=== PATIENT | male | born 1950 | race Caucasian/White ===

== ENCOUNTER 2020-05-26 00:09 | Inpatient (IN) | payer MEDICARE, SELFPAY ==
[2020-05-26] VITALS (10 sets, daily range): BP systolic 100–129; BP diastolic 67–92; PULSE 72–98; RESP 12–18; TEMP 36.8–37.4; O2SAT 90–96; BMI 28.6
[2020-05-26 00:49] LABS: Basophils % 0.3 %; Eosinophils % 0.3 %; Hematocrit 54.6 % (42.0-52.0); Hemoglobin 17.9 g/dL (11.7-16.6); Lymphocytes # 1.5 10^3/uL (0.8-4.8); Mean Corpuscular HGB Conc 32.8 g/dL (30.0-36.0); Mean Corpuscular Hemoglobin 30.2 pg (28.0-34.0); Mean Corpuscular Volume 92.1 fL (80-94); Monocytes # 1.4 10^3/uL (0.2-0.9); Monocytes % 9.2 %; Neutrophils # 12.2 10^3/uL (1.8-7.7); Neutrophils % 79.9 %; Nucleated Red Blood Cells % 0 %; Platelet Count 207 10^3/cmm (130-400); Red Blood Count 5.93 10^6/uL (4.1-5.3); Red Cell Distribution Width 15.5 % (12.1-15.1); White Blood Count 15.3 10^3/uL (4.0-10.0)
[2020-05-26 00:55] LABS: INR 1.16 (0.8-1.2); Partial Thromboplastin Time 36.2 SECONDS (23.9-36.7)
[2020-05-26 00:57] LABS: Alanine Aminotransferase 46 U/L (0-41); Albumin Level 3.9 g/dL (3.5-5.2); Alkaline Phosphatase 56 IU/L (40-130); Anion Gap 17.1 (5-19); Aspartate Amino Transferase 33 U/L (0-40); Blood Urea Nitrogen 12 mg/dL (8-23); Calcium 9.2 mg/dL (8.5-10.5); Carbon Dioxide 25 mmol/L (22-29); Chloride 97 mmol/L (98-107); Globulin 2.9 g/dL (1.3-4.6); Glucose 121 mg/dL (65-115); Osmolality Calculated 277 mOsm/kg (285-295); Potassium 4.1 mmol/L (3.5-5.1); Sodium 135 mmol/L (136-145); Total Bilirubin 0.9 mg/dL (0.15-1.2); Total Protein 6.8 g/dL (6.6-8.7)
--- NOTE | 2020-05-26 01:16 | P.CONIM_ITS ---
Providers/Reason For Consult Consulting Physican/Specialty*: Hospitalist service Reason for Consult*: Perioperative management Primary Care Provider: Felicity Carlson DO History of Present Illness History of Present Illness Oren Meyer is a 69 year old male who carries history of atrial fibrillation, anticoagulated with Eliquis, saphenous vein ablation in the past by Dr. Liu, hypothyroidism, hypertension, dyslipidemia, active smoker but transferred from [facility] for right lower quadrant pain. Patient is stating that he was in his usual state of health until Thursday morning when he started dispensing right lower quadrant pain, his pain was radiating towards his groin area, he did not notice any fever but endorsing chills, nausea and one episode of vomiting, after episode of vomiting he was able to drink mushroom soup without any difficulty. His last Eliquis dose was yesterday morning. He has not noticed any bleeding, he denies any previous surgical history which require anesthetic agents or intubation. He smoking about 1 pack a day. 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 At the time my evaluation patient was in left lateral position, resting, no active distress Afebrile, heart rate ranging between 90-1 04, Tenderness on deep palpation around right lower quadrant area, CT abdomen revealed acute appendicitis without abscess formation or perforation He has been given 1 dose of Zosyn Diagnostic data other facility revealed magnesium 2.1, digoxin level 0.91, u nremarkable urinalysis other than 2+ glucose CT abdomen revealed acute appendicitis, cholelithiasis and hepatic steatosis INR 1.2 PT 14 point He was given 1 L normal saline Diagnostic in our ER revealed leukocytosis, hemoconcentration Heart rate ranging between 90-1 04 atrial fibrillation, No active signs of CHF Review of Systems Const: Reports: chills and body aches; Denies: fever(s), change in weight, fatigue or diaphoresis Eyes: Denies: change in vision ENMT: Denies: throat pain Card: Denies: chest pain Resp: Denies: dyspnea GI: Reports: abdominal pain, nausea and vomiting; Denies: diarrhea or constipation : Denies: flank pain Musc: Denies: neck pain Skin/Breast: Reports: rash, new lesions (Left hand dorsal area) and lesions (Petechia bruises all over body) Neuro: Denies: headache(s) Psych: Denies: anxiety Endo: Denies: polyuria Maged/Lymph: Denies: easy bruising All/Imm: Denies: urticaria Meds/Allergies Home Medications and Allergies Allergies Allergy/AdvReac Type Severity Reaction Status Date / Time codeine Allergy Unknown Verified 05/26/20 00:15 PFSH Acute PFSH: Medical History (Updated 05/26/20 @ 01:22 by Tisha Braswell MD) Atrial fibrillation Chronic anticoagulation Chronic venous stasis Dyslipidemia Surgical History (Updated 05/26/20 @ 01:46 by Tisha Braswell MD) Status post endovenous radiofrequency ablation (RFA) of saphenous vein Family History (Updated 05/26/20 @ 01:47 by Tisha Braswell MD) Denies family history of Lung disease Social History (Updated 05/26/20 @ 01:47 by Tisha Braswell MD) Smoking and tobacco status: heavy tobacco smoker cigarettes [ Other cigarette details: 2 packs/day -for last 50 years ] Alcohol intake: current Alcohol intake frequency: few times a month Alcohol type: beer Substance/Drug Use: never Household members: spouse Housing: House Vitals/I&O/Wt Last Vital Signs Temp 99.3 F 05/26/20 00:16 Pulse 81 05/26/20 00:16 Resp 18 05/26/20 00:16 BP 125/92 05/26/20 00:16 Pulse Ox 92 05/26/20 00:16 Weight last 48 hrs Weight 98.43 kg Physical Exam Narrative: EXAM NARRATIVE: Head to toe examination Well-built male Resting comfortably in his bed Variable S1-S2 heart rate ranging between 90-1 04 No active signs of CHF Lower extremity venous stasis and varicose veins positive bilaterally Lungs are clear to auscultation Neurologically nonfocal exam Abdomen soft, no active signs of diffuse peritonitis, local tenderness to deep palpation right lower quadrant area, Lower extremity no signs of edema gangrene or ulcer Appropriate mood and Multiple petechia bruises all over his body Healing laceration of left hand A&P Assessment and plan (1) Acute appendicitis with localized peritonitis without abscess: Acute appendicitis without abscess or perforation Sepsis criteria met with tachycardia and leukocytosis Patient has received Zosyn in the ER Medical consult for perioperative management: His last Eliquis dose was on Thursday morning, I would hold digoxin, Eliquis, lisinopril and continue AV randall blocking agent metoprolol and Cardizem to prevent perioperative decompensation of A. fib, patient is fairly active for his age, considering urgent nature of the surgery no further cardiac work-up is needed. Considering use of Eliquis I would strongly recommend discontinuing aspirin. Digoxin level 0.91 Status: Acute Additional A&P Information Hypothyroidism: Continue levothyroxine after surgery Type 2 diabetes: Hold insulin, if he becomes hyperglycemic would manage hyperglycemia with fluids DVT prophylaxis on hold perioperatively Mild dehydration with hemoconcentration: Anticipating improvement with fluid resuscitation N.p.o. Full code Consult Attestations Medical Necessity Statement: As per surgical Time Spent in Patient Care: (>than 50% of time spent in counselling and/or direct pt care on unit) . 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
[2020-05-26] MEDS: piperacillin-tazobactam 3.375 GM in sodium chloride 0.9% (plus) 50 ML IV ×3 (01:20→16:59)
[2020-05-26] MEDS: sodium chloride 0.9% 1,000 ML 125 ML IV ×3 (03:49→19:46)
[2020-05-26 05:29] LABS: Glucose Point of Care 103 mg/dL (70-110)
[2020-05-26 07:22] LABS: Basophils % 0.4 %; Eosinophils # 0.1 10^3/uL (0.0-0.8); Eosinophils % 0.8 %; Hematocrit 53.4 % (42.0-52.0); Hemoglobin 17.4 g/dL (11.7-16.6); Lymphocytes # 1.6 10^3/uL (0.8-4.8); Lymphocytes % 14.8 %; Mean Corpuscular HGB Conc 32.6 g/dL (30.0-36.0); Mean Corpuscular Hemoglobin 30.2 pg (28.0-34.0); Mean Corpuscular Volume 92.5 fL (80-94); Mean Platelet Volume 10.2 fL (7.4-10.4); Monocytes # 1.1 10^3/uL (0.2-0.9); Monocytes % 10.1 %; Neutrophils # 7.8 10^3/uL (1.8-7.7); Neutrophils % 73.6 %; Nucleated Red Blood Cells % 0 %; Platelet Count 169 10^3/cmm (130-400); Red Blood Count 5.77 10^6/uL (4.1-5.3); Red Cell Distribution Width 15.8 % (12.1-15.1); White Blood Count 10.6 10^3/uL (4.0-10.0)
--- NOTE | 2020-05-26 08:01 | PC.NURSE ---
Patient speaking to his on the phone at this time.
--- NOTE | 2020-05-26 08:14 | PM.HP ---
Providers/Chief Complaint Admitting Physician: Anish Urias MD Primary Care Provider: Felicity Carlson DO Chief Complaint: APPLY History of Present Illness Oren Meyer is a 69 year old male Review of Systems General: Reports: 10 or more systems reviewed and unremarkable except in HPI and below Medications/Allergies Home Medications Medication Instructions Recorded Confirmed Last Taken Type apixaban [Eliquis] 5 mg PO BID 05/26/20 05/26/20 05/25/20 08:00 History Allergies Allergy/AdvReac Type Severity Reaction Status Date / Time codeine Allergy Intermediate ADR/ALGY-Pa Verified 05/26/20 03:27 lpitations PFSH Acute PFSH: Medical History Atrial fibrillation Chronic anticoagulation Chronic venous stasis Dyslipidemia Hypothyroidism Surgical History Status post endovenous radiofrequency ablation (RFA) of saphenous vein Family History Denies family history of Lung disease Social History Smoking and tobacco status: heavy tobacco smoker cigarettes [ Other cigarette details: 2 packs/day -for last 50 years ] Alcohol intake: current Alcohol intake frequency: few times a month Alcohol type: beer Substance/Drug Use: never Household members: spouse Housing: House Vitals/I&O/Wt Last Vital Signs Temp 99.0 F 05/26/20 03:25 Pulse 84 05/26/20 08:09 Resp 18 05/26/20 08:09 BP 100/67 05/26/20 03:25 Pulse Ox 90 05/26/20 08:09 05/25/20 05/26/20 05/26/20 22:59 06:59 14:59 Intake Total 120 / 120 Output Total 600 / 600 Balance -480 / -480 Weight last 48 hrs Weight 217 lb Physical Exam Narrative: EXAM NARRATIVE: HEENT: Normocephalic Eye: Sclera /conjunctiva normal Respiratory and chest: Bilateral clear breath sounds on auscultation Cardiovascular: Normal S1 and S2 heart sounds Abdomen: Soft to palpation, tender right lower quadrant Neurological: Oriented to place person and time Skin: Intact, no lesions appreciated on gross exam Data : 05/26/20 06:52 05/26/20 00:21 A&P Assessment and plan (1) Acute appendicitis with localized peritonitis without abscess: 69-year-old gentleman with right lower quadrant pain with CT scan confirming acute appendicitis. Patient took his last dose of Eliquis yesterday morning. At this point patient is hemodynamically stable, no evidence of peritonitis. We will therefore treat him with IV Zosyn every 8 hours and plan for surgery tomorrow morning when he would have been off Eliquis for 48 hours. 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
[2020-05-26] MEDS: metoprolol tartrate 25 mg Tablet 12.5 MG PO ×2 (08:39→16:59)
[2020-05-26] MEDS: dilTIAZem ER (24HR) 240 mg Capsule PO (08:39)
[2020-05-26 08:49] LABS: Albumin Level 3.7 g/dL (3.5-5.2); Alkaline Phosphatase 57 IU/L (40-130); Anion Gap 17.6 (5-19); Aspartate Amino Transferase 27 U/L (0-40); Blood Urea Nitrogen 11 mg/dL (8-23); Calcium 8.9 mg/dL (8.5-10.5); Carbon Dioxide 24 mmol/L (22-29); Chloride 99 mmol/L (98-107); Globulin 3.4 g/dL (1.3-4.6); Glucose 103 mg/dL (65-115); Osmolality Calculated 280 mOsm/kg (285-295); Potassium 3.6 mmol/L (3.5-5.1); Sodium 137 mmol/L (136-145); Total Protein 7.1 g/dL (6.6-8.7)
[2020-05-26 09:00] LABS: Alanine Aminotransferase 39 U/L (0-41)
--- NOTE | 2020-05-26 11:57 | PM.PN ---
Subjective Subjective: Interval history: This morning patient states that he is feeling a bit better, he will have a bowel movement, pass gas, no fevers, no chills, no nausea, no vomiting Vitals/I&O/Wt Last Vital Signs Temp 98.3 F 05/26/20 08:00 Pulse 84 05/26/20 08:09 Resp 18 05/26/20 08:09 BP 124/73 05/26/20 08:00 Pulse Ox 90 05/26/20 08:09 05/25/20 05/26/20 05/26/20 22:59 06:59 14:59 Intake Total 120 / 120 Output Total 600 / 600 Balance -480 / -480 Weight last 48 hrs Weight 98.43 kg Physical Exam Const: COMMON NORMALS: no acute distress and patient oriented x3 HENMT: COMMON NORMALS: normocephalic HEAD & SCALP: normocephalic Neck/C-Spine: COMMON NORMALS: no JVD Resp: COMMON NORMALS: normal respiratory effort, No retractions, No use of accessory muscles and clear to auscultation bilaterally AUSCULTATION: clear to auscultation bilaterally Cardio: COMMON NORMALS: no JVD, regular rate, regular rhythm, S1 normal heart sound present and S2 normal heart sound present RATE: regular rate RHYTHM: regular rhythm HEART SOUNDS: S1 normal heart sound present and S2 normal heart sound present GI: COMMON NORMALS: Soft to palpation, non-tender, No hepatosplenomegaly present, no masses and no bruits INSPECTION: Yes normal to inspection AUSCULTATION: Yes Hypoactive bowel sounds present PALPATION: Yes Soft to palpation, No Firmness to palpation present (GI), Yes Tenderness to palpation present (GI) (Tenderness) Details: RLQ, No Guarding due to palpation present (GI), No Rigid due to palpation and Yes No hepatosplenomegaly present PERCUSSION: normal to percussion Extremity: COMMON NORMALS: capillary refill normal, no clubbing, cyanosis or edema, no calf tenderness and no pedal edema Neuro: COMMON NORMALS: patient oriented x3 Psych: COMMON NORMALS: mental status grossly normal Data : 05/26/20 06:52 05/26/20 06:52 A&P Assessment and plan (1) Acute appendicitis with localized peritonitis without abscess: Acute appendicitis without abscess or perforation Sepsis criteria met with tachycardia and leukocytosis Patient has received Zosyn in the ER Medical consult for perioperative management: His last Eliquis dose was on Thursday morning, I would hold digoxin, Eliquis, lisinopril and continue AV randall blocking agent metoprolol and Cardizem to prevent perioperative decompensation of A. fib, patient is fairly active for his age, considering urgent nature of the surgery no further cardiac work-up is needed. Considering use of Eliquis I would strongly recommend discontinuing aspirin. Digoxin level 0.91 Plan is for surgery tomorrow morning in the meantime, monitor for fevers, serial abdominal exams Status: Acute Additional A&P Information Hypothyroidism: Continue levothyroxine after surgery Type 2 diabetes: Hold insulin, if he becomes hyperglycemic would manage hyperglycemia with fluids DVT prophylaxis on hold perioperatively Mild dehydration with hemoconcentration: Anticipating improvement with fluid resuscitation N.p.o. 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
[2020-05-26 17:15] LABS: Glucose Point of Care 91 mg/dL (70-110)
[2020-05-26 21:25] LABS: Glucose Point of Care 103 mg/dL (70-110)
[2020-05-27] VITALS (15 sets, daily range): BP systolic 108–161; BP diastolic 72–88; PULSE 65–101; RESP 16–25; TEMP 36.2–36.7; O2SAT 92–99
[2020-05-27] MEDS: piperacillin-tazobactam 3.375 GM in sodium chloride 0.9% (plus) 50 ML IV ×2 (00:50→10:17)
[2020-05-27 05:41] LABS: Basophils # 0.1 10^3/uL (0.0-0.1); Basophils % 0.7 %; Eosinophils # 0.1 10^3/uL (0.0-0.8); Eosinophils % 2.1 %; Hematocrit 52.9 % (42.0-52.0); Hemoglobin 17.3 g/dL (11.7-16.6); Lymphocytes # 1.2 10^3/uL (0.8-4.8); Lymphocytes % 18.1 %; Mean Corpuscular HGB Conc 32.7 g/dL (30.0-36.0); Mean Corpuscular Hemoglobin 30.9 pg (28.0-34.0); Mean Corpuscular Volume 94.5 fL (80-94); Mean Platelet Volume 10.1 fL (7.4-10.4); Monocytes # 0.9 10^3/uL (0.2-0.9); Monocytes % 12.8 %; Neutrophils # 4.5 10^3/uL (1.8-7.7); Neutrophils % 65.7 %; Nucleated Red Blood Cells % 0 %; Platelet Count 162 10^3/cmm (130-400); Red Cell Distribution Width 15.9 % (12.1-15.1); White Blood Count 6.8 10^3/uL (4.0-10.0)
[2020-05-27 05:58] LABS: Alanine Aminotransferase 39 U/L (0-41); Albumin Level 3.8 g/dL (3.5-5.2); Alkaline Phosphatase 50 IU/L (40-130); Anion Gap 19.3 (5-19); Blood Urea Nitrogen 10 mg/dL (8-23); Calcium 8.7 mg/dL (8.5-10.5); Carbon Dioxide 22 mmol/L (22-29); Chloride 99 mmol/L (98-107); Globulin 2.9 g/dL (1.3-4.6); Glucose 86 mg/dL (65-115); Magnesium 2.3 mg/dL (1.7-2.3); Osmolality Calculated 277 mOsm/kg (285-295); Phosphorus 2.4 mg/dL (2.5-4.5); Potassium 4.3 mmol/L (3.5-5.1); Sodium 136 mmol/L (136-145); Total Protein 6.7 g/dL (6.6-8.7)
[2020-05-27 06:13] LABS: Aspartate Amino Transferase 36 U/L (0-40)
[2020-05-27 06:29] LABS: INR 1.01 (0.8-1.2)
[2020-05-27 06:34] LABS: Procalcitonin 0.13 ng/mL (0-0.5)
[2020-05-27 07:09] LABS: Glucose Point of Care 99 mg/dL (70-110)
[2020-05-27] MEDS: sodium chloride 0.9% 1,000 ML 30 ML IV (07:35)
--- NOTE | 2020-05-27 07:48 | P.ANESASSM_ITS ---
Pre-Anesthetic Assessment Pre-Anesthetic Assessment: Height/Weight: Height 1.85 m Weight 98.43 kg Temp Pulse Resp BP Pulse Ox 97.8 F 83 18 126/79 93 05/27/20 07:29 05/27/20 07:29 05/27/20 07:29 05/27/20 07:29 05/27/20 07:29 Preop Diagnosis: acute appendicitis Proposed Procedure: Operation Date: 05/27/20 08:20 Proposed Procedures p Laparoscopic Appendectomy(Not Applicable) - Anish Urias MD Familial anesthetic complications: none Was Beta Christo taken within 24 hours: Yes Last intake: Intake Last Liquid Date 05/25/20 Last Liquid Time 23:00 Last Solid Date 05/25/20 Last Solid Time 15:00 Social: Social History: Alcohol and Tobacco Packs per day: 1 Pack years: 50+ Exam: Pre-Anes Outpt Exam: alert, oriented x 3, clear to auscultation bilaterally and regular rate & rhythm Airway: Submandibular: WNL Cervical ROM: WNL MP: 1 Dentition: False Pulmonary: Pulmonary: COPD and Sleep apnea CV/HEM: CV/HEM: Afib and PVD : : None reported Hepatic: Hepatic: None reported GI: GI: None reported Metabolic: Metabolic: DM Musc/skel: Musc/skel: Lower Back Pain and OA/DJD Neuropsych: Neuropsych: Seizure ( when i was 16 yo when i had the last one ) Anesthetic Plan: ASA status: 3 Anesthesia: General Risk of > 500 ml blood loss (7ml/kg in children): No Meds/Allergies Current Medications: Current Medications Generic Name Dose Route Start Last Admin Trade Name Sudarshanq PRN Reason Stop Dose Admin Diltiazem HCl 240 mg 05/26/20 09:00 05/26/20 08:39 Cardizem Cd (24h r) PO 240 mg DAILY MARCEL Administration Sodium Chloride 1,000 mls @ 125 m ls/hr 05/26/20 03:10 05/27/20 00:45 Sodium Chloride 0.9% IV Not Given .Q8H MARCEL Piperacillin Sod/T azobactam 50 mls @ 12.5 mls /hr 05/26/20 09:00 05/27/20 00:50 Sod 3.375 gm/ So dium Chloride IV 12.5 mls/hr Q8H MARCEL Administration Protocol As Directed Sodium Chloride 1,000 mls @ 30 ml s/hr 05/27/20 07:45 05/27/20 07:35 Sodium Chloride 0.9% IV 05/28/20 07:44 30 mls/hr .Q24H MARCEL Administration Metoprolol Tartrat e 12.5 mg 05/26/20 09:00 05/26/20 16:59 Lopressor PO 12.5 mg BID MARCEL Administration PFSH Anesthesia PFSH: Medical History Atrial fibrillation Chronic anticoagulation Chronic venous stasis Dyslipidemia Hypothyroidism Surgical History Status post endovenous radiofrequency ablation (RFA) of saphenous vein Family History Denies family history of Lung disease Social History Smoking and tobacco status: heavy tobacco smoker cigarettes [ Other cigarette details: 2 packs/day -for last 50 years ] Alcohol intake: current Alcohol intake frequency: few times a month Alcohol type: beer Substance/Drug Use: never Household members: spouse Housing: House Data Anesthesia CBC & Chem 7: 05/27/20 04:30 05/27/20 04:30 Other Labs: Laboratory Results - last 48 hr 05/26/20 05/26/20 05/26/20 00:21 00:21 00:21 WBC 15.3 H RBC 5.93 H Hgb 17.9 H Hct 54.6 H MCV 92.1 MCH 30.2 MCHC 32.8 RDW 15.5 H Plt Count 207 MPV 10.0 Neut % (Auto) 79.9 Lymph % (Auto) 10.0 Pershing % (Auto) 9.2 Eos % (Auto) 0.3 Baso % (Auto) 0.3 Neut # (Auto) 12.2 H Lymph # (Auto) 1.5 Pershing # (Auto) 1.4 H Eos # (Auto) 0.0 Baso # (Auto) 0.0 Nucleated RBC % (auto) 0 Nucleated RBCs # 0.0 PT 15.20 H INR 1.16 APTT 36.2 Sodium 135 L Potassium 4.1 Chloride 97 L Carbon Dioxide 25 Anion Gap 17.1 BUN 12 Creatinine 0.8 Glucose 121 H POC Glucose Calculated Osmolality 277 L Calcium 9.2 Phosphorus Magnesium Total Bilirubin 0.9 AST 33 ALT 46 H Alkaline Phosphatase 56 Total Protein 6.8 Albumin 3.9 Globulin 2.9 Procalcitonin 05/26/20 05/26/20 05/26/20 05:25 06:52 06:52 WBC 10.6 H RBC 5.77 H Hgb 17.4 H Hct 53.4 H MCV 92.5 MCH 30.2 MCHC 32.6 RDW 15.8 H Plt Count 169 MPV 10.2 Neut % (Auto) 73.6 Lymph % (Auto) 14.8 Pershing % (Auto) 10.1 Eos % (Auto) 0.8 Baso % (Auto) 0.4 Neut # (Auto) 7.8 H Lymph # (Auto) 1.6 Pershing # (Auto) 1.1 H Eos # (Auto) 0.1 Baso # (Auto) 0.0 Nucleated RBC % (auto) 0 Nucleated RBCs # 0.0 PT INR APTT Sodium 137 Potassium 3.6 Chloride 99 Carbon Dioxide 24 Anion Gap 17.6 BUN 11 Creatinine 0.8 Glucose 103 POC Glucose 103 Calculated Osmolality 280 L Calcium 8.9 Phosphorus Magnesium Total Bilirubin 1.0 AST 27 ALT 39 Alkaline Phosphatase 57 Total Protein 7.1 Albumin 3.7 Globulin 3.4 Procalcitonin 05/26/20 05/26/20 05/27/20 17:12 21:15 04:30 WBC 6.8 RBC 5.60 H Hgb 17.3 H Hct 52.9 H MCV 94.5 H MCH 30.9 MCHC 32.7 RDW 15.9 H Plt Count 162 MPV 10.1 Neut % (Auto) 65.7 Lymph % (Auto) 18.1 Pershing % (Auto) 12.8 Eos % (Auto) 2.1 Baso % (Auto) 0.7 Neut # (Auto) 4.5 Lymph # (Auto) 1.2 Pershing # (Auto) 0.9 Eos # (Auto) 0.1 Baso # (Auto) 0.1 Nucleated RBC % (auto) 0 Nucleated RBCs # 0.0 PT INR APTT Sodium Potassium Chloride Carbon Dioxide Anion Gap BUN Creatinine Glucose POC Glucose 91 103 Calculated Osmolality Calcium Phosphorus Magnesium Total Bilirubin AST ALT Alkaline Phosphatase Total Protein Albumin Globulin Procalcitonin 05/27/20 05/27/20 05/27/20 04:30 04:30 04:30 WBC RBC Hgb Hct MCV MCH MCHC RDW Plt Count MPV Neut % (Auto) Lymph % (Auto) Pershing % (Auto) Eos % (Auto) Baso % (Auto) Neut # (Auto) Lymph # (Auto) Pershing # (Auto) Eos # (Auto) Baso # (Auto) Nucleated RBC % (auto) Nucleated RBCs # PT 13.60 H INR 1.01 APTT Sodium 136 Potassium 4.3 Chloride 99 Carbon Dioxide 22 Anion Gap 19.3 H BUN 10 Creatinine 0.8 Glucose 86 POC Glucose Calculated Osmolality 277 L Calcium 8.7 Phosphorus 2.4 L Magnesium 2.3 Total Bilirubin 1.0 AST 36 ALT 39 Alkaline Phosphatase 50 Total Protein 6.7 Albumin 3.8 Globulin 2.9 Procalcitonin 0.13 05/27/20 06:58 WBC RBC Hgb Hct MCV MCH MCHC RDW Plt Count MPV Neut % (Auto) Lymph % (Auto) Pershing % (Auto) Eos % (Auto) Baso % (Auto) Neut # (Auto) Lymph # (Auto) Pershing # (Auto) Eos # (Auto) Baso # (Auto) Nucleated RBC % (auto) Nucleated RBCs # PT INR APTT Sodium Potassium Chloride Carbon Dioxide Anion Gap BUN Creatinine Glucose POC Glucose 99 Calculated Osmolality Calcium Phosphorus Magnesium Total Bilirubin AST ALT Alkaline Phosphatase Total Protein Albumin Globulin Procalcitonin Cardiac Studies: No Data to Display
--- NOTE | 2020-05-27 07:53 | PM.PN ---
Subjective Subjective: Interval history: No issues overnight, patient denies any nausea or vomiting. No fevers or chills Vitals/I&O/Wt Last Vital Signs Temp 97.8 F 05/27/20 07:29 Pulse 83 05/27/20 07:29 Resp 18 05/27/20 07:29 BP 126/79 05/27/20 07:29 Pulse Ox 93 05/27/20 07:29 05/26/20 05/27/20 05/27/20 22:59 06:59 14:59 Intake Total 881.25 / 1931.25 Output Total 1700 / 3600 900 / 3600 Balance -818.75 / -1668.75 -900 / -1668.75 Weight last 48 hrs Weight 217 lb Physical Exam Narrative: EXAM NARRATIVE: Abdomen: Soft, nondistended, and very tender right lower quadrant Data : 05/27/20 04:30 05/27/20 04:30 A&P Assessment and plan (1) Acute appendicitis with localized peritonitis without abscess: 69-year-old gentleman with acute appendicitis who was admitted and kept on IV Zosyn since patient was hemodynamically stable with no evidence of peritonitis. 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
--- NOTE | 2020-05-27 09:11 | PM.OP ---
Operative Report Date of procedure: May 27, 2020 Pre-op Diagnosis: acute appendicitis Post-op diagnosis: same Procedure Done: Laparoscopic appendectomy Specimens removed/disposition: Appendix Surgeon: Anish Urias Anesthesia: General Estimated blood loss (mL): 25 Condition: stable Disposition: PACU Brief History: This is 69-year-old gentleman was transferred from [facility] with acute appendicitis. Unfortunately patient is on Eliquis and since he was hemodynamically stable without any evidence of peritonitis, I treated him with IV antibiotics for 24 hours before proceeding with surgery today. Procedure: The patient was taken to the Operating Room and intubated under general anesthesia after antibiotic had been administered. Using a 15 blade, a 1-cm infraumbilical incision was made and using open Jason technique, the peritoneal cavity was entered. A 12mm port with balloon was placed and 14 mm of pneumoperitoneum was created and 10-mm 30 degree scope was introduced. Two separate 5mm ports were placed in the left and right lower quadrant under direct visualization. The appendix was noted in the right lower quadrant and appeared acutely inflamed with suppuration.. Using [place] forceps, an opening was made in the mesoappendix near the base of the appendix. An Endo MATIAS stapler 45mm long 3.5mm blue load was introduced to divide the appendix at it's base. The mesoappendix was densely adherent to the cecal wall which made dissection difficult. Using electrocautery, the mesoappendix including the appendicular artery was divided. There was no bleeding noted and the staple line appeared intact. The right lower quadrant was irrigated with saline and an EndoCatch bag was introduced to remove the appendix. All three ports were removed under direct visualization and there was no bleeding noted on the port sites. The fascia at the umbilical port was closed using figure of eight 0-Vicryl sutures and subcutaneous tissue was approximated using 3-0 Vicryl and skin at all 3 port sites was closed using 4-0 Monocryl and Dermabond. 10 cc of 0.5% Marcaine was infiltrated at the port sites.
--- NOTE | 2020-05-27 09:13 | P.DS_ITS ---
Discharge Providers Date of Admission: 05/26/20 01:11 Date of Discharge: May 27, 2020 Attending Provider at Admission: Anish Urias MD Attending Provider at Discharge: Anish Urias MD Primary Care Provider: Felicity Carlson DO Diagnoses at Discharge Discharge Diagnosis (1) Acute appendicitis with localized peritonitis without abscess: Status: Resolved (2) Chronic anticoagulation: Status: Acute Reason for Visit Reason for Visit: APPLY Hospital Course Discharge Summary: This is a 69-year-old gentleman transferred from [facility] with acute appendicitis. Patient was on Eliquis and therefore was treated with IV antibiotics for 24 more hours before proceeding with laparoscopic appendectomy on 05/27/2020. Patient did well during surgery and he subsequently discharged home later that day. At time of discharge his vital signs are stable and he is tolerating a liquid diet. Discharge Data Data Completed and Pending: Pending at discharge Category Date Time Status Complete Blood Co unt w/Auto AM LABS Lab 05/28/20 04:00 Ordered Complete Blood Co unt w/Auto AM LABS Lab 05/29/20 04:00 Ordered Comprehensive Met abolic Panel AM LA BS Lab 05/28/20 04:00 Ordered Comprehensive Met abolic Panel AM LA BS Lab 05/29/20 04:00 Ordered Magnesium AM LABS Lab 05/28/20 04:00 Ordered Magnesium AM LABS Lab 05/29/20 04:00 Ordered Phosphorus AM LAB S Lab 05/28/20 04:00 Ordered Phosphorus AM LAB S Lab 05/29/20 04:00 Ordered Procalcitonin AM LABS Lab 05/28/20 04:00 Ordered Procalcitonin AM LABS Lab 05/29/20 04:00 Ordered Prothrombin Time INR AM LABS Lab 05/28/20 04:00 Ordered Prothrombin Time INR AM LABS Lab 05/29/20 04:00 Ordered Pathology: Surgic al [PTH] Routine Pth 05/27/20 09:05 Ordered Labs from last 24 hours 05/27/20 05/27/20 05/27/20 06:58 04:30 04:30 WBC RBC Hgb Hct MCV MCH MCHC RDW Plt Count MPV Neut % (Auto) Lymph % (Auto) [place] % (Auto) Eos % (Auto) Baso % (Auto) Neut # (Auto) Lymph # (Auto) [place] # (Auto) Eos # (Auto) Baso # (Auto) Nucleated RBC % (a uto) Nucleated RBCs # PT 13.60 H INR 1.01 Sodium Potassium Chloride Carbon Dioxide Anion Gap BUN Creatinine Glucose POC Glucose 99 Calculated Osmolal ity Calcium Phosphorus Magnesium Total Bilirubin AST ALT Alkaline Phosphata se Total Protein Albumin Globulin Procalcitonin 0.13 05/27/20 05/27/20 05/26/20 04:30 04:30 21:15 WBC 6.8 RBC 5.60 H Hgb 17.3 H Hct 52.9 H MCV 94.5 H MCH 30.9 MCHC 32.7 RDW 15.9 H Plt Count 162 MPV 10.1 Neut % (Auto) 65.7 Lymph % (Auto) 18.1 [place] % (Auto) 12.8 Eos % (Auto) 2.1 Baso % (Auto) 0.7 Neut # (Auto) 4.5 Lymph # (Auto) 1.2 [place] # (Auto) 0.9 Eos # (Auto) 0.1 Baso # (Auto) 0.1 Nucleated RBC % (a uto) 0 Nucleated RBCs # 0.0 PT INR Sodium 136 Potassium 4.3 Chloride 99 Carbon Dioxide 22 Anion Gap 19.3 H BUN 10 Creatinine 0.8 Glucose 86 POC Glucose 103 Calculated Osmolal ity 277 L Calcium 8.7 Phosphorus 2.4 L Magnesium 2.3 Total Bilirubin 1.0 AST 36 ALT 39 Alkaline Phosphata se 50 Total Protein 6.7 Albumin 3.8 Globulin 2.9 Procalcitonin 05/26/20 17:12 WBC RBC Hgb Hct MCV MCH MCHC RDW Plt Count MPV Neut % (Auto) Lymph % (Auto) [place] % (Auto) Eos % (Auto) Baso % (Auto) Neut # (Auto) Lymph # (Auto) [place] # (Auto) Eos # (Auto) Baso # (Auto) Nucleated RBC % (a uto) Nucleated RBCs # PT INR Sodium Potassium Chloride Carbon Dioxide Anion Gap BUN Creatinine Glucose POC Glucose 91 Calculated Osmolal ity Calcium Phosphorus Magnesium Total Bilirubin AST ALT Alkaline Phosphata se Total Protein Albumin Globulin Procalcitonin Vitals: Last Vital Signs Temp 97.8 F 05/27/20 07:29 Pulse 83 05/27/20 07:29 Resp 18 05/27/20 07:29 BP 126/79 05/27/20 07:29 Pulse Ox 93 05/27/20 07:29 Discharge Plan Discharge Patient Disposition: Home, Self-Care Condition: Stable Prescriptions: [place] 5-325 mg tablet 1 tab PO Q6H 7 Days Qty: 20 RF: 0 docusate sodium [Colace] 100 mg capsule 100 mg PO BID Qty: 30 RF: 0 ondansetron HCl [Zofran] 4 mg tablet 4 mg PO Q6H PRN (Reason: nausea and vomiting) Qty: 20 RF: 0 Continued Eliquis 5 mg Tablet 5 mg PO BID RF: 0 Digox 250 mcg (0.25 mg) tablet 250 mcg PO DAILY RF: 0 lisinopril 20 mg tablet 20 mg PO DAILY RF: 0 hydrochlorothiazide 12.5 mg capsule 12.5 mg PO DAILY RF: 0 levothyroxine 50 mcg tablet 50 mcg PO DAILY RF: 0 metoprolol succinate 25 mg tablet extended release 24 hr 25 mg PO DAILY RF: 0 diltiazem HCl 240 mg capsule,extended release 24hr 240 mg PO DAILY RF: 0 Ozempic 1 mg/dose (2 mg/1.5 mL) Pen Injector 0.5 mg SUBCUT DIRECTED RF: 0 Discharge Orders: Discharge Order (Routine); Ordered 05/27/20 Ordered By: Anish Urias Referrals: Anish Urias MD [Physician] - 2 weeks Discharge Diet: Advance as tolerated Activity Restrictions/Additional Instructions: 1. Up and walking as tolerated. 2. Ok to shower in 48 hours after surgery. 3. Remove Dermabond dressing in 7-10 days. 4. Do not lift more than 10 pounds. 5. Do not operate heavy machinery or drive while using pain medications. 6. Advised to return to ER or contact my office if there are any signs of infection like, increasing pain, fevers, chills, redness or drainage of pus. 7. 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
--- NOTE | 2020-05-27 09:27 | SUR.PHASEI ---
0944 PATIENT TO PACU FROM OR AT THIS TIME. RR EVEN AND UNLABORED. SPO2 91% ON SIMPLE MASK AT 8L. PATIENT PROTECTING AIRWAY.
--- NOTE | 2020-05-27 10:05 | SUR.PHASEI ---
0955 PATIENT TO MED SURG. RR EVEN AND UNLABORED. DENIES NAUSEA, TOLERATING ICE CHIPS. 3 INCISIONS TO ABDOMEN, CDI. PATIENT AMBULATORY FROM GURNEY TO BED WHEN ARRIVING TO MED SURG, GAIT STEADY.
[2020-05-27] MEDS: HYDROcodone-acetaminophen 5-325 mg Tablet 1 TAB PO (10:16)
[2020-05-27] MEDS: metoprolol tartrate 25 mg Tablet 12.5 MG PO (10:18)
[2020-05-27] MEDS: dilTIAZem ER (24HR) 240 mg Capsule PO (10:18)
[2020-05-27] MEDS: sodium chloride 0.9% 1,000 ML 125 ML IV (10:20)
[2020-05-27 10:58] LABS: Glucose Point of Care 119 mg/dL (70-110)
--- NOTE | 2020-05-27 12:20 | P.PN_ITS ---
Subjective Subjective: Interval history: This morning, patient was seen after surgical procedure, is doing well, we will try a general diet, Ulrich was removed was removed, decision is to start Eliquis the day after tomorrow Vitals/I&O/Wt Last Vital Signs Temp 98.0 F 05/27/20 11:45 Pulse 76 05/27/20 11:45 Resp 16 05/27/20 11:45 BP 119/80 05/27/20 11:45 Pulse Ox 97 05/27/20 11:45 05/26/20 05/27/20 05/27/20 22:59 06:59 14:59 Intake Total 881.25 / 1931.25 1050 / 2981.25 600 / 600 Output Total 1700 / 2700 900 / 3600 Balance -818.75 / -768.75 150 / -618.75 585 / 585 Weight last 48 hrs Weight 98.43 kg Physical Exam Const: COMMON NORMALS: no acute distress and patient oriented x3 HENMT: COMMON NORMALS: normocephalic HEAD & SCALP: normocephalic Neck/C-Spine: COMMON NORMALS: no JVD Resp: COMMON NORMALS: normal respiratory effort, No retractions, No use of accessory muscles and clear to auscultation bilaterally AUSCULTATION: clear to auscultation bilaterally Cardio: COMMON NORMALS: no JVD, regular rate, regular rhythm, S1 normal heart sound present and S2 normal heart sound present RATE: regular rate RHYTHM: regular rhythm HEART SOUNDS: S1 normal heart sound present and S2 normal heart sound present GI: COMMON NORMALS: Normal to inspection, nondistended, normoactive bowel sounds present, Soft to palpation and No hepatosplenomegaly present INSPECTION: Yes normal to inspection AUSCULTATION: Yes Hypoactive bowel sounds present PALPATION: Yes Soft to palpation and Yes No hepatosplenomegaly present PERCUSSION: normal to percussion OTHER: Surgical sites look clean and dry Extremity: COMMON NORMALS: capillary refill normal, no clubbing, cyanosis or edema, no calf tenderness and no pedal edema Neuro: COMMON NORMALS: patient oriented x3 Psych: COMMON NORMALS: mental status grossly normal Data : 05/27/20 04:30 05/27/20 04:30 A&P Assessment and plan (1) Acute appendicitis with localized peritonitis without abscess: Acute appendicitis without abscess or perforation status post laparoscopic appendectomy postop day 0 Sepsis criteria met with tachycardia and leukocytosis On Zosyn Medical consult for perioperative management: -Continue Eliquis the day after tomorrow -Continue aspirin, follow-up with cardiology for consideration of discontinuation Digoxin level 0.91 Status: Resolved Additional A&P Information Hypothyroidism: Continue levothyroxine after surgery Type 2 diabetes: Low-dose sliding scale Mild dehydration with hemoconcentration: Anticipating improvement with fluid r esuscitation N.p.o. 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
--- NOTE | 2020-05-27 17:12 | ED_ITS ---
HPI - Abdominal Pain General: Chief Complaint: Abdominal Pain Stated Complaint: Appy Time Seen by Provider: 05/26/20 00:12 History of Present Illness: MD elicited complaint: abdominal pain Onset (ago): day(s) Location: RLQ Severity: moderate Quality: aching and fullness Radiation: none Exacerbating factors: movement Relieving factors: medication Associated Symptoms: Reports anorexia, fever(s) and vomiting; Denies diarrhea, dysuria and hematochezia Review of Systems Const: Reports: fever(s) Eyes: Denies: change in vision ENMT: Denies: epistaxis or sinus pain Card: Reports: irregular heart rhythm; Denies: chest pain, palpitations or swelling of feet/ankles Resp: Denies: dyspnea, productive cough, non-productive cough or wheezing GI: Reports: vomiting; Denies: diarrhea or hematochezia : Denies: difficulty urinating or dysuria Musc: Denies: neck pain or back pain Skin/Breast: Denies: rash, pruritus or erythema Neuro: Denies: headache(s), dizziness or vertigo Psych: Denies: anxiety PFSH ED PFSH: Medical History (Updated 05/27/20 @ 09:10 by Anish Urias MD) Atrial fibrillation Chronic anticoagulation Chronic venous stasis Dyslipidemia Hypothyroidism Surgical History (Updated 05/27/20 @ 09:10 by Anish Urias MD) S/P laparoscopic appendectomy (05/27/20) Status post endovenous radiofrequency ablation (RFA) of saphenous vein Family History Denies family history of Lung disease Social History Smoking and tobacco status: heavy tobacco smoker cigarettes [ Other cigarette details: 2 packs/day -for last 50 years ] Alcohol intake: current Alcohol intake frequency: few times a month Alcohol type: beer Substance/Drug Use: never Household members: spouse Housing: House Physical Exam Const: GENERAL APPEARANCE: well developed ORIENTATION/CONSCIOUSNESS: Yes oriented to person, Yes oriented to place and Yes oriented to time HENMT: COMMON NORMALS: normocephalic, external ears normal and Normal external nose present HEAD & SCALP: normocephalic FACE & SINUS: normal facial exam NOSE: Normal external nose present and No nasal discharge present EXTERNAL EAR: Yes external ears normal MOUTH: tongue normal TEETH & GINGIVA: no abnormal tooth and associated gingiva THROAT: posterior oropharynx normal; no peritonsillar mass Eye: COMMON NORMALS: Equal, round and reactive pupils present, EOMs intact bilaterally and conjunctivae normal EYELID: eyelids normal CONJUNCTIVA: Yes conjunctivae normal PUPIL: Yes Equal, round and reactive pupils present Neck/C-Spine: GENERAL: No tracheal deviation Chest: COMMONS NORMALS: normal inspection of the chest CHEST: No tenderness Resp: COMMON NORMALS: clear to auscultation bilaterally EFFORT & INSPECTION: No tachypneic, No respiratory distress, No retractions, No uses accessory muscles and No tracheal deviation AUSCULTATION: clear to auscultation bilaterally, no rhonchi, no wheezes and lung sounds not diminished Cardio: COMMON NORMALS: regular rate and regular rhythm RATE: regular rate RHYTHM: regular rhythm HEART SOUNDS: no murmurs PERIPHERAL PULSES: radial pulses present GI: INSPECTION: No abdominal distension AUSCULTATION: No Hyperactive bowel sounds present and No Hypoactive bowel sounds present PALPATION: Yes Tend erness to palpation present (GI) Details: RLQ, Yes Guarding due to palpation present (GI) and No Rigid due to palpation PERCUSSION: no dullness to percussion and no tympanic to percussion Neuro: SENSORIUM/ORIENTATION: Yes oriented to person, Yes oriented to place and Yes oriented to time Psych: COMMON NORMALS: mental status grossly normal Skin: COMMON NORMALS: no rashes or lesions noted GENERAL SKIN EXAM: no rashes or lesions noted Course Vital Signs: Vital signs: Vital Signs Temperature 98.0 F 05/27/20 11:45 Pulse Rate 76 05/27/20 11:45 Respiratory Rate 16 05/27/20 11:45 Blood Pressure 119/80 05/27/20 11:45 Pulse Oximetry 97 05/27/20 11:45 MDM - Abdominal Pain MDM Narrative: Medical decision making narrative: 69-year-old male presented from an outside facility. He had been worked up for right lower quadrant pain. He was found to have a dilated inflamed appendix with no abscess. He is anticoagulated. We consulted surgery on his arrival, Dr. Urias agrees to admit, and ask for hospitalist consultation. We talked to Dr. Braswell about this as well, and he has agreed to consult regarding medical management of anticoagulation. Lab Data: Labs: Lab Results 05/26/20 05/26/20 05/26/20 Range/Units 00:21 00:21 00:21 WBC 15.3 H (4.0-10.0) 10^3/ uL RBC 5.93 H (4.1-5.3) 10^6/u L Hgb 17.9 H (11.7-16.6) g/dL Hct 54.6 H (42.0-52.0) % MCV 92.1 (80-94) fL MCH 30.2 (28.0-34.0) pg MCHC 32.8 (30.0-36.0) g/dL RDW 15.5 H (12.1-15.1) % Plt Count 207 (130-400) 10^3/c mm MPV 10.0 (7.4-10.4) fL Neut % (Auto) 79.9 % Lymph % (Auto) 10.0 % [place] % (Auto) 9.2 % Eos % (Auto) 0.3 % Baso % (Auto) 0.3 % Neut # (Auto) 12.2 H (1.8-7.7) 10^3/u L Lymph # (Auto) 1.5 (0.8-4.8) 10^3/u L [place] # (Auto) 1.4 H (0.2-0.9) 10^3/u L Eos # (Auto) 0.0 (0.0-0.8) 10^3/u L Baso # (Auto) 0.0 (0.0-0.1) 10^3/u L Nucleated RBC % (a uto) 0 % Nucleated RBCs # 0.0 /100WBC PT 15.20 H (10.5-13.3) SECO NDS INR 1.16 (0.8-1.2) APTT 36.2 (23.9-36.7) SECO NDS Sodium 135 L (136-145) mmol/L Potassium 4.1 (3.5-5.1) mmol/L Chloride 97 L (98-107) mmol/L Carbon Dioxide 25 (22-29) mmol/L Anion Gap 17.1 (5-19) BUN 12 (8-23) mg/dL Creatinine 0.8 (0.7-1.2) mg/dL Glucose 121 H (65-115) mg/dL Calculated Osmolal ity 277 L (285-295) mOsm/k g Calcium 9.2 (8.5-10.5) mg/dL Total Bilirubin 0.9 (0.15-1.2) mg/dL AST 33 (0-40) U/L ALT 46 H (0-41) U/L Alkaline Phosphata se 56 (40-130) IU/L Total Protein 6.8 (6.6-8.7) g/dL Albumin 3.9 (3.5-5.2) g/dL Globulin 2.9 (1.3-4.6) g/dL Discharge Plan Discharge Admit Provider: Anish Urias Condition: Stable Discharge Orders: Discharge Order (Routine); Ordered 05/27/20 Ordered By: Anish Urias Discharge Diet: Advance as tolerated Discharge Date/Time: 05/26/20 02:54 Coding Level of Care Code ED 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
== END 2020-05-27 13:37 | disposition home or self-care (01) | DRG 343 ==
LOC: ER 00:24 → MEDSURG 01:31
PROVIDERS: Emergency Medicine; Family Medicine; Admitting Provider Surgery; PCP Family Medicine; Visit Provider Surgery
PROC: 0DTJ4ZZ Resection of Appendix, Percutaneous Endoscopic Approach (ICD-10-PCS; CPT 44970; principal; 2020-05-27 08:00)
DX: K35.30 Acute appendicitis with localized peritonitis, without perforation or gangrene (principal); I48.91 Unspecified atrial fibrillation; E78.5 Hyperlipidemia, unspecified; E03.9 Hypothyroidism, unspecified; I87.8 Other specified disorders of veins; F17.210 Nicotine dependence, cigarettes, uncomplicated; Z79.01 Long term (current) use of anticoagulants
CPT/HCPCS: 12345; 36415; 36416; 80053; 82962; 83735; 84100; 84145; 85025; 85610; 85730; 88304; 99282; J2001; J2405; J2543; J2704; J2710; J3010; J3490; J7030

== ENCOUNTER → 2021-01-25 11:44 | Outpatient (BNVA) | payer MEDICARE, SELFPAY | PROVIDERS: PCP Family Medicine; Visit Provider Surgery | DX: Z01.812 Encounter for preprocedural laboratory examination (principal) | CPT/HCPCS: 87635 ==

== ENCOUNTER 2021-01-30 09:25 | Day surgery (SDC) | payer MEDICARE, SELFPAY ==
[2021-01-29 16:47] VITALS: BMI 27.7
[2021-01-30 09:49] VITALS: BP 106/76; PULSE 69; RESP 18; TEMP 36.1; O2SAT 98
--- NOTE | 2021-01-30 09:57 | W.PM.OPSUD ---
Surgery/Procedure H&P Update DATE OF PROCEDURE: January 30, 2021 DATE H&P PERFORMED: 01/18/21 H&P UPDATE INFORMATION: I have reviewed H&P completed within last 30 days, I have examined patient prior to procedure and No changes to prior documentation PREOP DIAGNOSIS: diagnostic PLANNED PROCEDURE: Operation Date: 01/30/21 11:00 Proposed Procedures p Hemorroidectomy [id number] K64.9 Z12.11(Not Applicable) - Anish Urias MD s Colonoscopy(Bilateral) - Anish Urias MD
[2021-01-30] MEDS: sodium chloride 0.9% 1,000 ML 30 ML IV (10:03)
[2021-01-30 10:11] LABS: Glucose Point of Care 107 mg/dL (70-110)
--- NOTE | 2021-01-30 11:04 | ANES.PREANE2 ---
Pre-Anesthetic Assessment Pre-Anesthetic Assessment: Height/Weight: Height 1.85 m Weight 95.254 kg Temp Pulse Resp BP Pulse Ox 97.0 F L 69 18 106/76 98 01/30/21 09:49 01/30/21 09:49 01/30/21 09:49 01/30/21 09:49 01/30/21 09:49 Preop Diagnosis: diagnostic Proposed Procedure: Operation Date: 01/30/21 11:00 Proposed Procedures p Hemorroidectomy 86190 [id number] K64.9 Z12.11(Not Applicable) - Anish Urias MD s Colonoscopy(Bilateral) - Anish Urias MD Familial anesthetic complications: None Was Beta Christo taken within 24 hours: Yes Last intake: Intake Last Liquid Date 01/29/21 Last Liquid Time 22:00 Last Solid Date 01/28/21 Last Solid Time 16:00 Social: Social History: Tobacco and No alcohol Exam: Pre-Anes Outpt Exam: alert, oriented x 3, clear to auscultation bilaterally and regular rate & rhythm Airway: Cervical ROM: WNL MP: 3 Dentition: False CV/HEM: CV/HEM: Afib and HTN Metabolic: Metabolic: Thyroid Anesthetic Plan: ASA status: 3 Anesthesia: MAC Risk of > 500 ml blood loss (7ml/kg in children): No Meds/Allergies Current Medications: Current Medications Generic Name Dose Route Start Last Admin Trade Name Freq PRN Reason Stop Dose Admin Sodium Chloride 1,000 mls @ 30 ml s/hr 01/30/21 09:45 01/30/21 10:03 Sodium Chloride 0.9% IV 01/31/21 09:44 30 mls/hr .Q24H MARCEL Administration PFSH Anesthesia PFSH: Medical History Atrial fibrillation Chronic anticoagulation Chronic venous stasis Dyslipidemia Hypothyroidism Surgical History S/P laparoscopic appendectomy (05/27/20) Status post endovenous radiofrequency ablation (RFA) of saphenous vein Family History Denies family history of Lung disease Social History (Updated 01/18/21 @ 11:50 by Ronna Thomas) Smoking and tobacco status: heavy tobacco smoker cigarettes [ Other cigarette details: 2 packs/day -for last 50 years ] Alcohol intake: current Alcohol intake frequency: few times a month Alcohol type: beer Household members: spouse Housing: House History of recent travel: No Data Anesthesia Other Labs: Laboratory Results - last 48 hr 01/30/21 10:08 POC Glucose 107 Cardiac Studies: No Data to Display
[2021-01-30 12:45] VITALS: BP 99/68; PULSE 88; RESP 12; TEMP 36.2; O2SAT 96
--- NOTE | 2021-01-30 12:47 | P.PCN_ITS ---
PACU note PACU note: VSS, Good respiratory effort, report to CHERRY GROWER Post-Anesthesia Exam: awake
--- NOTE | 2021-01-30 12:47 | PM.PACU ---
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
[2021-01-30 12:50] VITALS: BP 101/63; PULSE 86; RESP 18; TEMP 36.6; O2SAT 95
[2021-01-30 12:57] VITALS: BP 96/63; PULSE 85; RESP 18; TEMP 36.2; O2SAT 94
[2021-01-30 13:14] VITALS: BP 129/88; PULSE 66; RESP 18; O2SAT 93
--- NOTE | 2021-01-30 16:00 | ANE.PACU2 ---
Inpatient post-anesthesia follow up: Vital signs: Temperature 97.2 F Pulse Rate 66 Respiratory Rate 18 Blood Pressure 129/88 Pulse Oximetry 93 Oxygen Delivery Me thod Room Air Oxygen Flow Rate Fraction of Inspir ed Oxygen Hydration adequate: Yes Nausea and vomiting: No Pain level: 2 Mental status: Baseline
== END 2021-01-30 13:32 | disposition home or self-care (01) ==
PROVIDERS: PCP Family Medicine; Visit Provider Surgery
PROC: 0DJD8ZZ Inspection of Lower Intestinal Tract, Via Natural or Artificial Opening Endoscopic (ICD-10-PCS; CPT 45378; 2021-01-30 10:50)
DX: K92.1 Melena (principal); K64.9 Unspecified hemorrhoids; K57.30 Diverticulosis of large intestine without perforation or abscess without bleeding; D12.5 Benign neoplasm of sigmoid colon; Z79.01 Long term (current) use of anticoagulants; Z79.82 Long term (current) use of aspirin; I48.91 Unspecified atrial fibrillation; E78.5 Hyperlipidemia, unspecified; E03.9 Hypothyroidism, unspecified; F17.210 Nicotine dependence, cigarettes, uncomplicated; I10 Essential (primary) hypertension
CPT/HCPCS: 45378; 46250; 36416; 82962; 88305; J2704; J7030

== ENCOUNTER → 2023-08-06 14:47 | Outpatient (BNVA) | payer MEDICARE, SELFPAY | PROVIDERS: PCP Family Medicine; Visit Provider Internal Medicine | DX: R07.9 Chest pain, unspecified (principal); I48.91 Unspecified atrial fibrillation; I87.8 Other specified disorders of veins; E78.5 Hyperlipidemia, unspecified; I73.9 Peripheral vascular disease, unspecified; F17.210 Nicotine dependence, cigarettes, uncomplicated | CPT/HCPCS: 93005; 99204 ==

== ENCOUNTER 2023-08-18 12:02 | Outpatient (CLI) | payer MEDICARE, SELFPAY ==
--- NOTE | 2023-08-18 12:30 | USCV_ITS ---
Oren Meyer Age: 72 Gender: M : 1950 Exam Date: 08/18/2023 12:29 Ordering Phys: Srinivas Clifton M.D ([email or web address]) Technologist: Gelacio Summers [place] [facility] [place]: HISTORY: PROCEDURES: Bilateral duplex Venous Insufficiency study of the Deep and Superficial systems was carried out according to normal protocol with the patient in supine positon for deep system and dependent position for the superficial system. FINDINGS: All deep veins demonstrated compressibility without evidence of intraluminal thrombus or increased echogenicity. Spectral analysis of Doppler signals demonstrates normal response to compression maneuvers indicating patency without obstruction. Reflux determinations were made with the patient in the dependent position, the weight being on the contralateral leg. Vein measurements and reflux times are listed below were applicable. No notable reflux was seen at this time. The veins were found to be easily compressible with spontaneous blood flow. Non pulsatile flow pattern. CONCLUSIONS No evidence of DVT in the above-mentioned identifiable veins. No significant venous reflux either in the deep or in the superficial veins Greater saphenous vein segments are found to be less than 1 cm deep from the surface Mildly dilated superficial veins bilaterally, more so on the left side Dr Dipak Nagy MD [facility] (Electronically Signed) Final Date: 18 August 2023 19:46 S
== END 2023-08-18 12:03 | disposition home or self-care (01) ==
PROVIDERS: PCP Family Medicine; Visit Provider Internal Medicine
DX: M79.604 Pain in right leg (principal); M79.605 Pain in left leg; R22.43 Localized swelling, mass and lump, lower limb, bilateral
CPT/HCPCS: 93970

== ENCOUNTER 2023-08-20 10:51 | Outpatient (CLI) | payer MEDICARE, SELFPAY ==
--- NOTE | 2023-08-20 11:15 | USR_ITS ---
PROCEDURE INFORMATION: Exam: US Duplex Bilateral Lower Extremity Arteries Exam date and time: 08/20/2023 11:07 AM Age: 72 years old Clinical indication: Pain; Leg, lower; Bilateral; Additional info: Leg pain.No history of trauma or recent surgery is provided. TECHNIQUE: Imaging protocol: Real-time ultrasound scan of the arteries of the bilateral lower extremities with 2-D bay scale, color Doppler flow and spectral waveform analysis. Images documented and saved. [id number](s) are provided. COMPARISON: No previous arterial ultrasound is currently available. Previous CT abdomen report of 05/25/2020. FINDINGS: Right external iliac artery: The right iliac artery demonstrates systolic velocity measuring of 80 cm/s with no significant narrowing appreciated. Right common femoral artery: The systolic velocity measurement is 99 cm/s. No occlusion or significant stenosis is appreciated. Right superficial femoral artery: The systolic velocity measurement is 70 cm/s. No occlusion or significant stenosis is appreciated. Right popliteal artery: The systolic velocity measurement is 60 cm/s. No occlusion or significant stenosis is appreciated. Right calf/foot arteries: The systolic velocity measurement is 49 cm/s at the posterior tibial as well as 29 cm/s in the dorsalis pedis level. No occlusion or significant stenosis is appreciated. Left external iliac artery: The left iliac artery demonstrates systolic velocity of approximately 69 cm/s with no significant narrowing appreciated. Left common femoral artery: The systolic velocity measurement is 71 cm/s. No occlusion or significant stenosis is appreciated. Left superficial femoral artery: The systolic velocity measurement is 82 cm/s. No occlusion or significant stenosis is appreciated. Left popliteal artery: The systolic velocity measurement is 60 cm/s. No occlusion or significant stenosis is appreciated. Left calf/foot arteries: The systolic velocity measurement is approximately 50 cm/s at the posterior tibial and dorsalis pedis levels. No occlusion or significant stenosis is appreciated. Soft tissues: No subcutaneous fluid collections are appreciated. There are scattered atherosclerotic related changes overall with right iliac predominance. The ankle-brachial index is provided of 1.1 right and 1.1 left. US/[place] [id number] IMPRESSION: There is patent overall bilateral lower extremity arterial color Doppler flow demonstrated. No focal velocity doubling is appreciated to indicate hemodynamically significant stenosis.
== END 2023-08-20 10:52 | disposition home or self-care (01) ==
LOC: RAD 10:53
PROVIDERS: PCP Family Medicine; Visit Provider Internal Medicine
DX: M79.604 Pain in right leg (principal); M79.605 Pain in left leg
CPT/HCPCS: 93925

== ENCOUNTER → 2023-12-29 12:37 | Outpatient (BNVA) | payer MEDICARE, SELFPAY | PROVIDERS: PCP Family Medicine; Visit Provider Internal Medicine | DX: I87.8 Other specified disorders of veins (principal); I48.91 Unspecified atrial fibrillation; E78.5 Hyperlipidemia, unspecified; I73.9 Peripheral vascular disease, unspecified; Z79.01 Long term (current) use of anticoagulants | CPT/HCPCS: 99214 ==

== ENCOUNTER → 2024-04-29 15:36 | Outpatient (BNVA) | payer MEDICARE, SELFPAY | PROVIDERS: PCP Family Medicine; Visit Provider Family Medicine | DX: E11.65 Type 2 diabetes mellitus with hyperglycemia (principal); E03.9 Hypothyroidism, unspecified; I10 Essential (primary) hypertension; I48.91 Unspecified atrial fibrillation; I73.9 Peripheral vascular disease, unspecified; E78.5 Hyperlipidemia, unspecified; Z79.01 Long term (current) use of anticoagulants; K21.9 Gastro-esophageal reflux disease without esophagitis | CPT/HCPCS: 80053; 80061; 81000; 83036; 84439; 84443; 85025 ==

== ENCOUNTER → 2024-12-06 11:06 | Outpatient (BNVA) | payer OTHER, SELFPAY | PROVIDERS: PCP Family Medicine; Visit Provider Family Medicine | DX: E11.65 Type 2 diabetes mellitus with hyperglycemia (principal); E03.9 Hypothyroidism, unspecified; I10 Essential (primary) hypertension | CPT/HCPCS: 80053; 83036; 84439; 84443; 85025 ==

== ENCOUNTER → 2025-10-06 11:57 | Outpatient (BNVA) | payer MEDICARE, SELFPAY | PROVIDERS: PCP Family Medicine; Visit Provider Family Medicine | DX: E11.9 Type 2 diabetes mellitus without complications (principal); E78.5 Hyperlipidemia, unspecified; E03.9 Hypothyroidism, unspecified | CPT/HCPCS: 80053; 80061; 83036; 84439; 84443; 85025 ==